=== PATIENT | female | born 1935 | race Caucasian/White ===

== ENCOUNTER 2017-08-11 05:57 | Day surgery (SDC) | payer MEDICARE, OTHER ==
[~2017-08-11] VITALS: Ht 149.9 cm; Wt 78.3 kg
[~2017-08-11 05:57] MED LIST: 1-ME1LIQ PO; ATEN-100 PO; CEFU1TAB43 PO; ESTR42.5V PV; FERR150C2 PO; HYZA100T2 PO; ISOS30 PO; JANU50TA5 PO; LEVO75TA3 PO; LORTA5 PO; METO25 PO; NITR50CA27 PO; PLAV75TA PO; PROT40TA PO; ROSU10 PO; SUCR1TAB PO
[2017-08-11] MEDS ORDERED: PROPOFOL 200 MG/20 ML AMP IV ONE (05:58)
[2017-08-11] MEDS ORDERED: LORazepam 1 MG TAB SL SCH (06:30)
[2017-08-11] MEDS ORDERED: ceFAZolin 2 GM PREMIX 50 ML IV SCH (06:30)
[2017-08-11] MEDS ORDERED: MUPIROCIN 2% OINT 1 APPLIC/GM SYR NASAL SCH (06:30)
[2017-08-11] MEDS ORDERED: NS 1000 ML IV SCH (06:30)
[2017-08-11] MEDS ORDERED: LACTATED RINGER'S 1000 ML IV PRN (06:30)
[2017-08-11] MEDS ORDERED: NO Heparin, Lovenox, Coumadin at least 12 hours prior to procedure. PRN (06:30)
[2017-08-11] MEDS ORDERED: Hold AM Insulin & AM Hypoglycemic medications in diabetic patients PRN (06:30)
[2017-08-11] MEDS ORDERED: VANCOMYCIN 1000 MG/NS 250 ML IV SCH ×2 (06:30)
[2017-08-11] MEDS ORDERED: CHLORHEXIDINE GLUCONATE 2 % 1 PACK (2 CLOTHS) TOPICAL SCH (06:30)
[2017-08-11] MEDS ORDERED: SODIUM CHLORID 0.9% 500 ML IV PRN (06:30)
[2017-08-11] MEDS ORDERED: METOPROLOL TARTRATE 25 MG TAB PO PRN (06:30)
[2017-08-11 06:42] VITALS: BP 188/78; PULSE 60; RESP 18; TEMP 98.3; O2SAT 98
[2017-08-11] MEDS ORDERED: HYZA100T6 PO (06:55)
[2017-08-11] MEDS ORDERED: TOPR50TA PO (06:55)
[2017-08-11] MEDS ORDERED: ISOS30TA3 PO (06:55)
[2017-08-11] MEDS ORDERED: LISI-515 PO (06:55)
[2017-08-11] MEDS ORDERED: ATEN25TA PO (06:55)
[2017-08-11] MEDS ORDERED: ROSU10 PO (06:55)
[2017-08-11] MEDS ORDERED: SYNT25TA PO (06:55)
[2017-08-11] MEDS ORDERED: CYAN1KIT2 IM (06:55)
[2017-08-11] MEDS ORDERED: PLAV75TA29 PO (06:55)
[2017-08-11] MEDS ORDERED: PROT40TA PO (06:55)
[2017-08-11] MEDS ORDERED: AMLO10TA2 PO (06:55)
[2017-08-11] MEDS ORDERED: LANTUS2P SQ (06:55)
[2017-08-11] MEDS ORDERED: CLON0.1T PO (06:55)
[2017-08-11] MEDS ORDERED: HYDR-3516 PO (06:55)
[2017-08-11 07:02] LABS: AUTOMATED NEUTROPHIL # 2.9 TH/MM3 (1.8-7.7); BASOPHIL # 0.1 TH/MM3 (0-0.2); BASOPHIL % 1.3 % (0.0-2.0); EOSINOPHIL # 0.3 TH/MM3 (0-0.4); EOSINOPHIL % 6.1 % (0.0-4.0); HEMOGLOBIN 12.3 GM/DL (11.6-15.3); LYMPH % 32.9 % (9.0-44.0); LYMPHOCYTE # 1.8 TH/MM3 (1.0-4.8); MEAN CELL VOLUME 87.3 FL (80.0-100.0); MEAN CORPUSCULAR HEMOGLOBIN 28.9 PG (27.0-34.0); MEAN CORPUSCULAR HGB CONC 33.1 % (32.0-36.0); MEAN PLATELET VOLUME 10.1 FL (7.0-11.0); MONO % 7.3 % (0.0-8.0); MONOCYTE # 0.4 TH/MM3 (0-0.9); NEUT % 52.4 % (16.0-70.0); PLATELET COUNT 192 TH/MM3 (150-450); RED BLOOD COUNT 4.24 MIL/MM3 (4.00-5.30); RED CELL DISTRIBUTION WIDTH 13.7 % (11.6-17.2); WHITE BLOOD COUNT 5.5 TH/MM3 (4.0-11.0)
[2017-08-11 07:08] LABS: PROTHROMBIN TIME - PATIENT 10.4 SEC (9.8-11.6)
[2017-08-11 07:19] LABS: BICARBONATE 25.8 MEQ/L (21.0-32.0); CALCIUM 8.5 MG/DL (8.5-10.1); CREATININE 1.45 MG/DL (0.50-1.00)
[2017-08-11] MEDS ORDERED: LIDOCAINE HCL 2% 50 ML VIAL ONE (07:29)
[2017-08-11] MEDS ORDERED: VANCOMYCIN 500 MG VIAL ONE (07:29)
[2017-08-11] MEDS ORDERED: PROPOFOL 200 MG/20 ML AMP ONE (07:37)
[2017-08-11] MEDS ORDERED: MIDAZOLAM HCL 2 MG/2 ML VIAL ONE (07:37)
--- NOTE | 2017-08-11 08:22 | PD.CARD ---
PPM GENERATOR REPLACEMENT PROCEDURE DATE: Aug 11, 2017 PPM GENERATOR REPLACEMENT PROC PROCEDURE PERFORMED Permanent pacemaker removal, permanent pacemaker replacement, pocket revision. Ms. Monson is a 81 -year-old female with history of complete AV block , permanent pacemaker EOL admits for pacer generator replacement. The risks, the nature and the benefit of the procedure were clearly stated to her. The risks include pneumothorax, cardiac perforation, stroke and even . The patient understood and agreed to proceed. PROCEDURE After written informed consent was obtained, the patient was brought to the EP lab where was prepped and draped in the sterile fashion. Conscious sedation was initiated using intravenous Versed and introducer intravenous fentanyl. Once sedation was verified, the left infraclavicular area over the generator was anesthetized with 2% Xylocaine. Using a #11 scalpel, a 3 centimeter incision was made over the existing generator. Dissection was then taken down to deep fascial layer using Bovie cautery and blunt dissection. Once exposed, the generator was removed from the pocket. The pocket was expanded. Scar tissue was removed around the leads. Then, the leads were disconnected and tested. At that point, the pocket was copiously irrigated using antibiotic solution. The leads were connected to the new generator and placed into the pocket. The pacemaker was interrogated. She was A-sensing, V-pacing. I did proceed with wound closure. The deep fascial layer was approximated with 2-0 Vicryl suture in a continuous fashion. The subcutaneous layer was approximated with 2-0 Vicryl suture in a continuous fashion. Dermabond adhesive was applied to the wound followed by a sterile pressure dressing. There was no complication. The patient tolerated procedure. Blood loss minimal. EXPLANTED HARDWARE The explanted permanent pacemaker is a [place] [employer]. Model # S603 serial number [id number]. For information about the existing leads, please refer to previous dictation. IMPLANTED HARDWARE The implanted permanent pacemaker is a [place] Prote[employer] model number L311, serial number [id number]. THRESHOLDS The right atrial pacing threshold in bipolar mode was 0.9 volt at 0.4 milliseconds. Lead impedance 550 ohms and P wave at 3.4 millivolts. The right ventricular pacing threshold in bipolar mode was 0.5 volts at 0.4 milliseconds. Lead impedance 475 ohms. SETTINGS The device is set in a DDD60. Upper limit 120 beats per minute. Hysteresis and mode switch are on. CONCLUSIONS Successful permanent pacemaker removal, permanent pacemaker implantation, pocket revision. COMMENT AND RECOMMENDATIONS The patient will be transferred to the telemetry unit. He will be observed. The patient will be discharged home later on today. Herman Azrola MD Aug 11, 2017 08:22
[2017-08-11] MEDS ORDERED: CEPH-460 PO (08:28)
[2017-08-11] MEDS ORDERED: TRAM50TA PO (08:28)
[2017-08-11] MEDS ORDERED: ACETAMINOPHEN/CODEINE 300 MG/30 MG TAB PO PRN ×2 (08:30)
[2017-08-11] MEDS ORDERED: ONDANSETRON HCL 4 MG/2 ML VIAL IV PUSH PRN (08:30)
[2017-08-11] MEDS ORDERED: SODIUM CHLORIDE 0.9% FLUSH 10 ML FLUSH IV FLUSH PRN (08:30)
[2017-08-11] MEDS ORDERED: LABETALOL HCL 100 MG/20 ML VIAL ONE (08:38)
--- NOTE | 2017-08-11 08:46 | CATHPROC ---
[employer] HIS Report Study Information Study Number Admission Scheduled Start Study Start [id number] Aug 11 2017 5:57AM 08/11/2017 Aug 11 2017 7:25AM [place] Cardiac Pacer/ICD Admit Source Facility Department Other [facility] - Direct Care Professional Physician and Clinical Staff Initial Herman Rivas Treatment Plant Operator Silas Ureña,RT(R) Other Anesthesia, HALL MANAGER Recorder Fallon Khan,IR[place] Recorder Christine Barraza RN Recorder Zoey Ames RN Scrub Tasha Almeida,GUEST SERVICES AMBASSADOR TECH2 Equipment Time Quantitative Researcher Description Size Mfg Part Number Used/Scraped [employer]/ EP 08:10 PACEMAKER, ACCOLADE MRI SSIR L311 Used PACER DERMABOND, ADHESIVE SKIN [id number] 07:25 CORDIS/PACER * Used GLUE MINI *[id number] 07:25 Maya's Mom INDUST[employer]ES SUTURE, STRIP PLUS 1/2" * Used *[id number] 07:25 MEDLINE PACER SAHA, LIMB * 2530 *[id number] Used [id number] 07:25 MEDLINE PACER PACK, PACER CUSTOM * Used *[id number] 07:47 Needle Sponge Count 2 22 Used 07:51 Needle Sponge Count 2 2 Used 07:51 Needle Sponge Count 20 200 Used SUTURE, 2-0 VICRYL [CT1] ([id number]) [id number] 07:25 [employer],WARM AIR CCL * Used *[id number] [facility], ELECTROSURGICAL 07:25 * [id number] *[id number] Used SURGICAL GROUNDING ORANGE [id number] 07:50 VITATRON MEDTRONIC PLASMABLADE, PEAD 3.0S * Used *[id number] Equipment Model, Serial, Lot Number and Expiration Data Description Model Number Serial Number Lot Number Expiration Date PACEMAKER, ACCOLADE MRI MRI L311 [id number] 04-14-2019 History: Risk Factors Family History of Hypertension Dyslipidemia Previous ID Previous Heart Failure Premature CAD Yes Yes Yes Yes Yes Prior Valve Prior PCI Prior PCIDate Prior CABG Surgery No Yes 08/26/2010 No Cerebrovascular Peripheral Artery Chronic Lung On Dialysis Diabetes Diabetes Therapy Disease Disease Disease No No No Yes Yes Oral Labs Hgb (g/dl) Hct (%) RBC (MIL/MM3) WBC (l/cumm) Platelets (thousands) 11.60-17.00 35.00-51.00 4.00-5.90 4.00-11.00 150.00-450.00 12.3 37 4.2 5.5 192 Glucose (mg/dl) BUN (mg/dl) Creatinine (mg/dl) BUN:Creatinine (1:x) 74.00-106.00 7.00-18.00 0.50-1.30 10.00-20.00 184 30 1.4 21.4 Na (meq/l) K (meq/l) Cl (meq/l) CO2 (mmol/L) Ca (mg/dl) 136.00-145.00 3.50-5.10 98.00-107.00 21.00-32.00 8.50-10.10 139 4.3 104 25.8 8.5 PT (sec) PTT (sec) INR (PTT:PT) 9.80-11.60 24.30-30.10 0.90-1.10 10.4 24.5 1 CPK-MB (ng/ML) 0.50-3.60 Not Drawn Medication Medication Total Dose (Bolus/Oral) Medication Total Dosage/Unit 2% XYLOCAINE 50 mL Medications (Bolus/Oral) Medication Time Given Dosage/Unit Administered By Reason 2% XYLOCAINE 08/11/2017 8:07:55 AM 50 mL Herman Arzola 50 mL 2% XYLOCAINE given in lab by Herman Arzola in Left shoulder via Subcutaneous. Ordered by Herman Arzola. LEFT UPPER CHEST Medication (Drip) Medication Time Given Dosage/Unit Concentration/Unit Diluent (ml) Solution ANCEF 08/11/2017 7:35:55 AM 2 g 2 g ANCEF given in lab by Anesthesia, HALL MANAGER via Peripheral IV. Ordered by Herman Arzola. VANCOMYCIN DRIP 08/11/2017 7:35:47 AM 1 g 1 g VANCOMYCIN DRIP given in lab by Anesthesia, HALL MANAGER via Peripheral IV. Ordered by Herman Arzola. Initial Case Assessment Cardiovascular HR Rhythm NIBP Chest Pain 60 PACED 190/101 0 Edema Present Skin color Skin None Normal Warm Dry Circulatory - Right Pulses Dorsalis Pedis 1 Scale (0,1,2,3,4,d) Circulatory - Left Pulses Dorsalis Pedis 1 Scale (0,1,2,3,4,d) Neurological State Oriented to time-place- Alert Moves all extremities person Respiration - General Respiration Rate SpO2 (%) (B/min) 18 98 Final Case Assessment Cardiovascular HR Rhythm NIBP Chest Pain 60 PACED 136/63 0 Edema Present Skin color Skin None Normal Warm Dry Circulatory - Right Pulses Dorsalis Pedis 1 Scale (0,1,2,3,4,d) Circulatory - Left Pulses Dorsalis Pedis 1 Scale (0,1,2,3,4,d) Neurological State Oriented to time-place- Alert Moves all extremities person Respiration - General Respiration Rate SpO2 (%) O2 (lpm) (B/min) 18 100 2 Chronological Log Time Study Chronological Log 7:24:54 Patient arrived via Bed. 7:24:58 Patient Name, D.O.B, / Armband Verified By R.N. 7:24:59 Consent signed by the physician and the patient and verified by the Direct Care Professional staff. 7:25:00 Pre-op and post- op instructions given; patient acknowledges understanding of instructions. 7:25:09 Anesthesia at bedside. Assumes care of patient. SEE RECORDS FOR MEDS AND VITALS DURING PROC EDURE 7:34:12 Patient has been NPO for More than 6Hrs. 7:34:14 Skin Breakdown- NONE PER PATIENT 7:35:47 1 g VANCOMYCIN DRIP given in lab by Anesthesia, HALL MANAGER via Peripheral IV. Ordered by Clara Arzola. 7:35:55 2 g ANCEF given in lab by Anesthesia, HALL MANAGER via Peripheral IV. Ordered by Herman Arzola. 7:41:01 Patient Warmer Placed on the Table. 7:41:02 Disposable Defibrillator Pads Placed On Patient. 7:41:03 Fatemeh Prominences Protected 7:41:06 IV Warmer Connected To Patient. 7:41:06 A # 20 IV was noted in the Antecubital (left). Grade = 0 7:41:19 A # 22 IV was noted in the Hand (right). Grade = 0 7:41:30 History and physical on the chart or being dictated. 07/30/17 Assessment: Initial Case, HR=60 BPM, Rhythm=PACED, LKIK=539/101 mmhg, Chest Pain=0, Edema=None, Color=Normal, Skin = Warm, Dry Right Pulses: Eric Ped=1 7:41:37 Left Pulses: Eric Ped=1 Neurological: State=Alert, Ox3, AVENDAÑO Respiration: Resp=18 B/min, SpO2=98 % 7:42:38 Table restraints applied according to hospital policy 7:42:38 Left Upper Chest Prepped Times Two. 7:42:56 Bovie ground pad applied to: RIGHT HIP 7:43:18 2% CHLORHEXIDINE GLUCONATE WASH AND NASAL SWIPE DONE PRIOR TO PROCEDURE. First Sponge And Instrument Count Done by Tasha Almeida GUEST SERVICES AMBASSADOR TECH2. 7:43:23 Hypo's: 2, Sponges: 20, Bovie/scratch: 2 Sutures: 9, Blades: 1, Instruments: 26, Syveck Patches: 0 VERIFIED BY ROSALIE Torres RN 7:53:26 Reference ECG taken 7:56:01 MD paged 7:56:36 MD responded Time Out. Correct patient, procedure, procedure equipment, site and side verified with physician present. Time 8:06:00 concurred by MD, individual staff and HALL MANAGER. Time Out #2 - Consents verified, patient in correct position, all results are labled and display ed, safety precautions 8:06:10 taken, antibiotics administered. Time out concurred by MD, individual staff and HALL MANAGER in procedur e 8:06:55 Case Start 50 mL 2% XYLOCAINE given in lab by Herman Arzola in Left shoulder via Subcutaneous. Ordered by Herman Hernandes. 8:07:55 LEFT UPPER CHEST 8:10:36 Surgical Incision Made. 8:10:37 A pocket was created at the L Upper Chest. 8:11:58 A device was explanted. 8:12:05 A PACEMAKER, ACCOLADE MRI DR DECKER was connected and placed in the pocket. 8:15:14 The RV lead impedance and threshold being tested. 8:15:25 Pocket flushed with antibiotic solution SECOND Sponge And Instrument Count Done by Tasha Almeida, GUEST SERVICES AMBASSADOR TECH2. 8:15:31 Hypo's: 2, Sponges: 20, Bovie/scratch: 2 Sutures: 9, Blades: 1, Instruments: 26, Syveck Patches: 0 VERIFIED BY ROSALIE Torres RN 8:20:42 Implant Procedure was performed. 8:20:50 A PPM Implant . (Dual) GEN CHANGE 8:22:49 POCKET BEING CLOSED BY OSMAN 8:30:44 Sterile dressing applied to site 8:30:45 No case complications noted. 8:30:46 Cine recording checked. 8:30:47 Bedside Report will be given. 8:30:49 Implantable Device card placed in patient's chart. 8:30:50 DOCU called. Spoke to ANN MARIE 8:31:30 Defibrillator and ground pads removed. Skin intact. 8:32:40 Patient moved to stretcher 8:44:00 The pocket was closed. 8:44:00 Case End Assessment: Final Case, HR=60 BPM, Rhythm=PACED, WVRL=767/63 mmhg, Chest Pain=0, Edema=None, Color=Normal, Skin = Warm, Dry Right Pulses: Eric Ped=1 8:45:50 Left Pulses: Eric Ped=1 Neurological: State=Alert, Ox3, AVENDAÑO Respiration: Resp=18 B/min, HcX9=347 %, O2=2 lpm FINAL Sponge And Instrument Count Done by Tasha Almeida, GUEST SERVICES AMBASSADOR TECH2. 8:45:50 Hypo's: 2, Sponges: 20, Bovie/scratch: 2 Sutures: 10, Blades: 1, Instruments: 26, Syveck Patches: 0 VERIFIED BY ROSALIE Torres RN End Study - Contrast Media Used In Study Contrast Total Opened (mL) Total Used (mL) Total Wasted (mL) Unspecified 0 0 0 End Study - Maximum Contrast Load Max Contrast Load (mL) 279.7 End Study - Radiation Exposure Fluoro Time (minutes) 0.0 End Study - Patient Disposition Complications Transferred To Interventional Outcome No Telemetry Bed successful
[2017-08-11] MEDS ORDERED: SODIUM CHLORIDE 0.9% FLUSH 10 ML FLUSH IV FLUSH SCH (09:00)
--- NOTE | 2017-08-11 20:50 | EKG ---
Date Performed: 08/11/2017 Time Performed: 10:38:42 PTAGE: 81 years EKG: AV pacemaker Abnormal ECG PREVIOUS TRACING : 08/11/2017 06.56 Compared to prior tracing no significant change DOCTOR: Nadia Uribe Interpretating Date/Time 08/11/2017 20:48:54
--- NOTE | 2017-08-11 21:09 | EKG ---
Date Performed: 08/11/2017 Time Performed: 06:56:08 PTAGE: 81 years EKG: A-V sequential pacemaker Pacemaker rhythm - no further analysis Abnormal ECG PREVIOUS TRACING : 11/04/2014 19.54 Compared to prior tracing no significant change DOCTOR: Nadia Uribe Interpretating Date/Time 08/11/2017 21:07:12
== END 2017-08-11 10:57 | disposition home or self-care (01) ==
LOC: HCAT 05:57 → HDIC 05:57 → HCAT 10:57
PROVIDERS: ATTEND Internal Medicine Interventional Cardiology
DX: Z45.010 Encounter for checking and testing of cardiac pacemaker pulse generator [battery] (principal); I44.2 Atrioventricular block, complete; I11.0 Hypertensive heart disease with heart failure; I50.31 Acute diastolic (congestive) heart failure; E11.9 Type 2 diabetes mellitus without complications; R53.83 Other fatigue; Z79.4 Long term (current) use of insulin; Z79.01 Long term (current) use of anticoagulants
CPT/HCPCS: 00400; 33228; 80048; 85025; 85610; 85730; 86850; 86900; 86901; 93005; C1785; J2250; J3010; J3370